=== PATIENT | male | born 1965 | race Hispanic/Latino ===

== ENCOUNTER 2021-02-24 15:57 | Inpatient (IN) | payer MEDICARE ==
[~2021-02-24] VITALS: Ht 170.2 cm; Wt 80.3 kg
[~2021-02-24 15:57] MED LIST: BACTRIM 400-801 EACH PO; BENTYL10 MG PO; CARVEDILOL25 MG PO; COLACE100 M1 PO; FUROSEMIDE80 MG PO; ISONIAZID300 MG PO; LEVEMIR100 UNIT/1 SC; MYFORTIC180 MG PO; PANTOPRAZOLE SO40 MG PO; PREDNISONE10 MG PO; PROGRAF1 MG PO; VITAMIN B-650 M1 PO
[2021-02-24] MEDS ORDERED: PIPERACILLIN/TAZO 4.5 GM 100 ML IV STA (16:19)
[2021-02-24] MEDS ORDERED: SODIUM CHLORIDE 0.9% IV SCH (16:30)
[2021-02-24 16:41] LABS: BASOPHILS # (AUTO) 0.1 (0.0-0.1); HEMATOCRIT 44.9 % (38.2-49.6); HEMOGLOBIN 14.9 g/dL (14.0-18.0); LYMPHOCYTES # (AUTO) 0.9 (1.0-3.2); LYMPHOCYTES % 9.1 % (18.0-39.1); MEAN CORPUSCULAR HEMOGLOBIN 30.7 pg (28-32); MEAN CORPUSCULAR HGB CONC 33.2 g/dL (31-35); MEAN CORPUSCULAR VOLUME 92.6 fL (81-99); MONOCYTES # (AUTO) 1.1 (0.2-0.8); MONOCYTES % 10.9 % (4.4-11.3); NEUTROPHILS % 78.5 % (38.7-80.0); PLATELET COUNT 206 x10e3/uL (140-360); RED BLOOD COUNT 4.85 x10e6/uL (4.3-5.7); RED CELL DISTRIBUTION WIDTH 12.6 % (11.7-14.4)
[2021-02-24 17:13] LABS: ALBUMIN 3.3 g/dL (3.5-5.0); ANION GAP 17.2 mmol/L (8-16); CREATININE, SERUM 1.95 mg/dL (0.72-1.25); POTASSIUM 4.2 mmol/L (3.5-5.1)
[2021-02-24 17:15] LABS: ALBUMIN/GLOBULIN RATIO 0.9 (0.8-2.0)
[2021-02-24] MEDS ORDERED: Vancomycin IV 1 GM in SODIUM CHLORIDE 0.9% 250ML 250 ML IV ONE (17:15)
[2021-02-24] MEDS ORDERED: ONDANSETRON HCL INJ 2MG/ML 2ML 2 MG/ML VIAL IV PRN (20:00)
[2021-02-24] MEDS ORDERED: MORPHINE SULFATE INJ 2 MG/ML SYR IV PRN (20:00)
[2021-02-24] MEDS ORDERED: METOPROLOL SUCC25 MG PO (20:45)
[2021-02-24] MEDS ORDERED: LEVEMIR FL100 UNIT/1 (20:45)
[2021-02-24] MEDS ORDERED: NOVOLOG100 UNITS1 (20:45)
[2021-02-24] MEDS ORDERED: DEXTROSE 50% SYRINGE 50 ML IV PRN (21:15)
[2021-02-24 22:10] VITALS: BP 136/60
[2021-02-24 22:51] LABS: CLARITY,URINE SL CLOUDY (CLEAR); COLOR,URINE ORANGE (YELLOW); KETONES,URINE NEGATIVE (NEGATIVE); LEUKOCYTE ESTERASE ,URINE NEGATIVE (NEGATIVE); NITRITE,URINE NEGATIVE (NEGATIVE); PROTEIN,URINE DIPSTICK NEGATIVE (NEGATIVE); URINE UROBILINOGEN 1 mg/dL (0.2 - 1)
[2021-02-24 22:52] LABS: EPITHELIAL CELLS,URINE FEW /LPF; RBC,URINE 0-5 /HPF (0-5); WBC,URINE (MAN) 0-5 /HPF (0-5)
[2021-02-24 23:00] VITALS: BP 136/60
[2021-02-24 23:06] LABS: BACTERIA,URINE MODERATE /HPF
[2021-02-24] MEDS ORDERED: SODIUM CHLORIDE 0.9% 250ML 250 ML ONE (23:16)
[2021-02-24] MEDS: PIPERACILLIN/TAZOBACTAM 2.25 GM in SODIUM CHLORIDE 0.9% 50ML 50 ML IV SCH (23:31)
[2021-02-24] MEDS: TACROLIMUS 1 MG CAP PO SCH (23:31)
[2021-02-25] VITALS (8 sets, daily range): BP systolic 95–147; BP diastolic 45–75
[2021-02-25] MEDS: PIPERACILLIN/TAZOBACTAM 2.25 GM in SODIUM CHLORIDE 0.9% 50ML 50 ML IV SCH ×3 (05:35→17:28)
[2021-02-25 05:42] LABS: BASOPHILS # (AUTO) 0.1 (0.0-0.1); BASOPHILS % 0.7 % (0.0-1.0); EOSINOPHILS # (AUTO) 0.1 (0.0-0.4); EOSINOPHILS % 0.4 % (0.0-6.0); HEMATOCRIT 42.6 % (38.2-49.6); HEMOGLOBIN 14.3 g/dL (14.0-18.0); LYMPHOCYTES # (AUTO) 0.8 (1.0-3.2); LYMPHOCYTES % 6.1 % (18.0-39.1); MEAN CORPUSCULAR HEMOGLOBIN 31.1 pg (28-32); MEAN CORPUSCULAR HGB CONC 33.6 g/dL (31-35); MEAN CORPUSCULAR VOLUME 92.6 fL (81-99); MONOCYTES # (AUTO) 1.2 (0.2-0.8); MONOCYTES % 10.1 % (4.4-11.3); NEUTROPHILS % 82.2 % (38.7-80.0); PLATELET COUNT 179 x10e3/uL (140-360); RED CELL DISTRIBUTION WIDTH 12.5 % (11.7-14.4)
[2021-02-25] MEDS: TACROLIMUS 1 MG CAP PO SCH ×3 (06:08→21:39)
[2021-02-25] MEDS: ACETAMINOPHEN 325 MG TAB PO PRN ×2 (06:30→22:20)
[2021-02-25 06:31] LABS: CREATINE KINASE MB 1.1 ng/mL (0-5.0)
[2021-02-25 06:38] LABS: ALBUMIN 3.2 g/dL (3.5-5.0); ANION GAP 15.9 mmol/L (8-16); CALCIUM 9.1 mg/dL (8.4-10.2); CREATININE, SERUM 1.64 mg/dL (0.72-1.25); POTASSIUM 3.9 mmol/L (3.5-5.1)
[2021-02-25] MEDS: INSULIN LISPRO 100 UNIT/1 ML 3ML VIAL SQ SCH ×4 (07:30→21:33)
[2021-02-25] MEDS: PREDNISONE 5 MG TAB PO SCH (08:52)
[2021-02-25] MEDS: PANTOPRAZOLE SOD 40 MG TABEC PO SCH (08:52)
[2021-02-25] MEDS ORDERED: CILOSTAZOL50 MG PO (10:26)
[2021-02-25] MEDS ORDERED: LEVOTHYROXINE50 MCG PO (10:26)
[2021-02-25] MEDS ORDERED: COLACE100 MG PO (10:26)
[2021-02-25] MEDS: METOPROLOL SUCCINATE 25 MG TAB XL PO SCH ×2 (10:30→16:29)
[2021-02-25] MEDS: MYCOPHENOLATE SODIUM 720 MG PO SCH ×2 (10:40→16:30)
[2021-02-25] MEDS: AZITHROMYCIN 250 MG TAB PO SCH (21:14)
[2021-02-26] VITALS (9 sets, daily range): BP systolic 102–141; BP diastolic 31–50
[2021-02-26] MEDS: TACROLIMUS 1 MG CAP PO SCH ×2 (05:43→15:01)
[2021-02-26 05:53] LABS: BASOPHILS # (AUTO) 0.1 (0.0-0.1); BASOPHILS % 0.8 % (0.0-1.0); EOSINOPHILS # (AUTO) 0.1 (0.0-0.4); EOSINOPHILS % 0.5 % (0.0-6.0); HEMOGLOBIN 14.9 g/dL (14.0-18.0); LYMPHOCYTES % 8.9 % (18.0-39.1); MEAN CORPUSCULAR HEMOGLOBIN 30.6 pg (28-32); MEAN CORPUSCULAR HGB CONC 33.1 g/dL (31-35); MEAN CORPUSCULAR VOLUME 92.4 fL (81-99); MONOCYTES # (AUTO) 1.2 (0.2-0.8); MONOCYTES % 10.7 % (4.4-11.3); NEUTROPHILS # (AUTO) 8.6 (2.1-6.9); NEUTROPHILS % 78.5 % (38.7-80.0); PLATELET COUNT 182 x10e3/uL (140-360); RED BLOOD COUNT 4.87 x10e6/uL (4.3-5.7); RED CELL DISTRIBUTION WIDTH 12.3 % (11.7-14.4)
[2021-02-26 06:24] LABS: ALBUMIN/GLOBULIN RATIO 0.8 (0.8-2.0); ANION GAP 13.3 mmol/L (8-16); CALCIUM 9.9 mg/dL (8.4-10.2); CREATININE, SERUM 1.49 mg/dL (0.72-1.25); POTASSIUM 4.3 mmol/L (3.5-5.1)
[2021-02-26] MEDS: INSULIN LISPRO 100 UNIT/1 ML 3ML VIAL SQ SCH ×4 (07:30→21:37)
[2021-02-26] MEDS: METOPROLOL SUCCINATE 25 MG TAB XL PO SCH ×2 (09:00→17:00)
[2021-02-26] MEDS: AZITHROMYCIN 250 MG TAB PO SCH (15:00)
[2021-02-26] MEDS: PREDNISONE 5 MG TAB PO SCH (15:01)
[2021-02-26] MEDS: PANTOPRAZOLE SOD 40 MG TABEC PO SCH (15:01)
[2021-02-26] MEDS: MYCOPHENOLATE SODIUM 720 MG PO SCH ×2 (15:04→17:07)
[2021-02-26] MEDS: CEFTRIAXONE 1 GM in SODIUM CHLORIDE 0.9% 50ML 50 ML IV SCH (15:04)
[2021-02-26] MEDS ORDERED: CEFTRIAXONE 1 GM VIAL ONE (15:13)
[2021-02-26] MEDS ORDERED: REMDESIVIR 200MG 200 MG in SODIUM CHLORIDE 0.9% 100 ML 100 ML IV ONE (16:00)
[2021-02-27] VITALS (8 sets, daily range): BP systolic 110–145; BP diastolic 44–58
[2021-02-27 05:38] LABS: BASOPHILS # (AUTO) 0.1 (0.0-0.1); BASOPHILS % 0.7 % (0.0-1.0); EOSINOPHILS % 0.3 % (0.0-6.0); HEMOGLOBIN 15.5 g/dL (14.0-18.0); LYMPHOCYTES # (AUTO) 1.2 (1.0-3.2); LYMPHOCYTES % 11.6 % (18.0-39.1); MEAN CORPUSCULAR HEMOGLOBIN 30.8 pg (28-32); MEAN CORPUSCULAR VOLUME 93.4 fL (81-99); MONOCYTES # (AUTO) 1.2 (0.2-0.8); MONOCYTES % 10.9 % (4.4-11.3); NEUTROPHILS # (AUTO) 8.1 (2.1-6.9); PLATELET COUNT 200 x10e3/uL (140-360); RED BLOOD COUNT 5.03 x10e6/uL (4.3-5.7); RED CELL DISTRIBUTION WIDTH 12.3 % (11.7-14.4)
[2021-02-27] MEDS: LEVOTHYROXINE SODIUM 25 MCG TABLET PO SCH (06:15)
[2021-02-27] MEDS ORDERED: TRIMETHOPRIM/SULFAMETHOXAZOLE 160-800 MG TAB PO SCH (07:30)
[2021-02-27] MEDS ORDERED: TACROLIMUS 1 MG CAP PO SCH ×3 (07:30→16:30)
[2021-02-27 08:16] LABS: ALBUMIN 3.1 g/dL (3.5-5.0); ALBUMIN/GLOBULIN RATIO 0.8 (0.8-2.0); ANION GAP 22.5 mmol/L (8-16); CALCIUM 10.4 mg/dL (8.4-10.2); CREATININE, SERUM 1.26 mg/dL (0.72-1.25); POTASSIUM 4.5 mmol/L (3.5-5.1)
[2021-02-27] MEDS: PANTOPRAZOLE SOD 40 MG TABEC PO SCH (08:36)
[2021-02-27] MEDS: AZITHROMYCIN 250 MG TAB PO SCH (08:37)
[2021-02-27] MEDS: CEFTRIAXONE 1 GM in SODIUM CHLORIDE 0.9% 50ML 50 ML IV SCH (08:37)
[2021-02-27] MEDS: PREDNISONE 20 MG TAB PO SCH (08:37)
[2021-02-27] MEDS: METOPROLOL SUCCINATE 25 MG TAB XL PO SCH ×2 (08:38→17:00)
[2021-02-27] MEDS: MYCOPHENOLATE SODIUM 720 MG PO SCH ×2 (08:39→17:45)
[2021-02-27] MEDS: INSULIN LISPRO 100 UNIT/1 ML 3ML VIAL SQ SCH ×4 (08:42→21:00)
[2021-02-27] MEDS ORDERED: TRIMETHOPRIM/SULFAMETHOXAZOLE 160-800 MG TAB PO PRN (08:45)
[2021-02-27] MEDS ORDERED: ISONIAZID 300 MG TAB PO SCH (09:00)
[2021-02-27] MEDS ORDERED: PYRIDOXINE HCL 50 MG PO SCH (09:00)
[2021-02-27] MEDS: PYRIDOXINE HCL 50 MG TAB PO SCH (11:26)
[2021-02-27] MEDS: ISONIAZID 300 MG TAB PO SCH (11:26)
[2021-02-27] MEDS: TRIMETHOPRIM/SULFAMETHOXAZOLE 160-800 MG TAB PO SCH (14:30)
[2021-02-27] MEDS: REMDESIVIR 100MG 100 MG in SODIUM CHLORIDE 0.9% 100 ML 100 ML IV SCH (14:30)
[2021-02-27] MEDS ORDERED: INSULIN LISPRO 100 UNIT/1 ML 3ML VIAL SQ ONE ×2 (20:30→22:45)
[2021-02-27] MEDS: TACROLIMUS 1 MG CAP PO SCH (20:57)
[2021-02-28] VITALS (9 sets, daily range): BP systolic 90–141; BP diastolic 40–67
[2021-02-28 05:46] LABS: BASOPHILS % 0.3 % (0.0-1.0); HEMATOCRIT 43.8 % (38.2-49.6); HEMOGLOBIN 14.7 g/dL (14.0-18.0); LYMPHOCYTES # (AUTO) 0.9 (1.0-3.2); LYMPHOCYTES % 8.4 % (18.0-39.1); MEAN CORPUSCULAR HEMOGLOBIN 30.7 pg (28-32); MEAN CORPUSCULAR HGB CONC 33.6 g/dL (31-35); MEAN CORPUSCULAR VOLUME 91.4 fL (81-99); MONOCYTES # (AUTO) 0.9 (0.2-0.8); MONOCYTES % 8.1 % (4.4-11.3); NEUTROPHILS # (AUTO) 8.8 (2.1-6.9); NEUTROPHILS % 82.4 % (38.7-80.0); PLATELET COUNT 200 x10e3/uL (140-360); RED BLOOD COUNT 4.79 x10e6/uL (4.3-5.7)
[2021-02-28] MEDS: LEVOTHYROXINE SODIUM 25 MCG TABLET PO SCH (06:15)
[2021-02-28 06:34] LABS: ANION GAP 16.4 mmol/L (8-16); CALCIUM 10.8 mg/dL (8.4-10.2); CREATININE, SERUM 1.97 mg/dL (0.72-1.25); POTASSIUM 4.4 mmol/L (3.5-5.1)
[2021-02-28 07:13] LABS: CHOL/HDL RATIO 7.2 (3.9-4.7)
[2021-02-28] MEDS ORDERED: CEFTRIAXONE 1 GM VIAL ONE (08:10)
[2021-02-28] MEDS: CEFTRIAXONE 1 GM in SODIUM CHLORIDE 0.9% 50ML 50 ML IV SCH (08:30)
[2021-02-28] MEDS: METOPROLOL SUCCINATE 25 MG TAB XL PO SCH ×2 (08:32→17:00)
[2021-02-28] MEDS: ASPIRIN 81 MG ENTERIC COATED PO SCH (08:32)
[2021-02-28] MEDS: MYCOPHENOLATE SODIUM 720 MG PO SCH ×2 (08:32→17:21)
[2021-02-28] MEDS: ISONIAZID 300 MG TAB PO SCH (08:32)
[2021-02-28] MEDS: PREDNISONE 20 MG TAB PO SCH (08:32)
[2021-02-28] MEDS: PYRIDOXINE HCL 50 MG TAB PO SCH (08:33)
[2021-02-28] MEDS: PANTOPRAZOLE SOD 40 MG TABEC PO SCH (08:33)
[2021-02-28] MEDS: INSULIN LISPRO 100 UNIT/1 ML 3ML VIAL SQ SCH ×4 (08:57→21:17)
[2021-02-28] MEDS: TACROLIMUS 1 MG CAP PO SCH ×2 (09:21→21:08)
[2021-02-28] MEDS: TRIMETHOPRIM/SULFAMETHOXAZOLE 160-800 MG TAB PO SCH (12:06)
[2021-02-28] MEDS: REMDESIVIR 100MG 100 MG in SODIUM CHLORIDE 0.9% 100 ML 100 ML IV SCH (14:07)
[2021-03-01] VITALS: BP 128/59
[2021-03-01 04:00] VITALS: BP 127/51
[2021-03-01] MEDS: LEVOTHYROXINE SODIUM 25 MCG TABLET PO SCH (06:12)
[2021-03-01 07:39] LABS: BASOPHILS % 0.1 % (0.0-1.0); HEMATOCRIT 44.1 % (38.2-49.6); HEMOGLOBIN 14.8 g/dL (14.0-18.0); LYMPHOCYTES # (AUTO) 0.8 (1.0-3.2); LYMPHOCYTES % 6.2 % (18.0-39.1); MEAN CORPUSCULAR HGB CONC 33.6 g/dL (31-35); MEAN CORPUSCULAR VOLUME 92.3 fL (81-99); MONOCYTES # (AUTO) 0.5 (0.2-0.8); MONOCYTES % 3.9 % (4.4-11.3); NEUTROPHILS % 88.9 % (38.7-80.0); PLATELET COUNT 203 x10e3/uL (140-360); RED BLOOD COUNT 4.78 x10e6/uL (4.3-5.7); RED CELL DISTRIBUTION WIDTH 12.1 % (11.7-14.4)
[2021-03-01 08:05] LABS: ANION GAP 15.8 mmol/L (8-16); CALCIUM 10.8 mg/dL (8.4-10.2); CREATININE, SERUM 1.92 mg/dL (0.72-1.25); POTASSIUM 4.8 mmol/L (3.5-5.1)
[2021-03-01] MEDS: METOPROLOL SUCCINATE 25 MG TAB XL PO SCH ×2 (08:05→16:47)
[2021-03-01] MEDS: PANTOPRAZOLE SOD 40 MG TABEC PO SCH (09:16)
[2021-03-01] MEDS: MYCOPHENOLATE SODIUM 720 MG PO SCH ×2 (09:18→16:59)
[2021-03-01] MEDS: CEFTRIAXONE 1 GM in SODIUM CHLORIDE 0.9% 50ML 50 ML IV SCH (09:18)
[2021-03-01] MEDS: TACROLIMUS 1 MG CAP PO SCH ×2 (09:19→21:09)
[2021-03-01] MEDS: PREDNISONE 20 MG TAB PO SCH (09:19)
[2021-03-01] MEDS: PYRIDOXINE HCL 50 MG TAB PO SCH (09:19)
[2021-03-01] MEDS: ASPIRIN 81 MG ENTERIC COATED PO SCH (09:19)
[2021-03-01] MEDS: INSULIN LISPRO 100 UNIT/1 ML 3ML VIAL SQ SCH ×4 (09:31→21:13)
[2021-03-01 11:00] VITALS: BP 129/59
[2021-03-01] MEDS: TRIMETHOPRIM/SULFAMETHOXAZOLE 160-800 MG TAB PO SCH (12:30)
[2021-03-01] MEDS: DOCUSATE SODIUM LIQD 100 MG/10 ML UDC NG SCH ×2 (12:30→16:59)
[2021-03-01] MEDS: INSULIN GLARGINE 100 UNITS/ML VIAL SQ SCH ×2 (12:36→17:00)
[2021-03-01 12:37] VITALS: BP 138/48
[2021-03-01] MEDS: REMDESIVIR 100MG 100 MG in SODIUM CHLORIDE 0.9% 100 ML 100 ML IV SCH (13:19)
[2021-03-01 17:02] VITALS: BP 116/57
[2021-03-01 20:00] VITALS: BP 128/44
[2021-03-02] VITALS (7 sets, daily range): BP systolic 126–147; BP diastolic 48–67
[2021-03-02] MEDS: LEVOTHYROXINE SODIUM 25 MCG TABLET PO SCH (05:46)
[2021-03-02 06:47] LABS: BASOPHILS % 0.1 % (0.0-1.0); HEMATOCRIT 42.8 % (38.2-49.6); HEMOGLOBIN 14.6 g/dL (14.0-18.0); LYMPHOCYTES % 7.5 % (18.0-39.1); MEAN CORPUSCULAR HEMOGLOBIN 31.1 pg (28-32); MEAN CORPUSCULAR HGB CONC 34.1 g/dL (31-35); MEAN CORPUSCULAR VOLUME 91.3 fL (81-99); MONOCYTES # (AUTO) 0.6 (0.2-0.8); MONOCYTES % 4.8 % (4.4-11.3); NEUTROPHILS # (AUTO) 11.3 (2.1-6.9); NEUTROPHILS % 86.9 % (38.7-80.0); PLATELET COUNT 199 x10e3/uL (140-360); RED BLOOD COUNT 4.69 x10e6/uL (4.3-5.7); RED CELL DISTRIBUTION WIDTH 12.3 % (11.7-14.4)
[2021-03-02 07:17] LABS: ALBUMIN 2.8 g/dL (3.5-5.0); ALBUMIN/GLOBULIN RATIO 0.9 (0.8-2.0); ANION GAP 14.5 mmol/L (8-16); CALCIUM 10.8 mg/dL (8.4-10.2); CREATININE, SERUM 1.47 mg/dL (0.72-1.25); POTASSIUM 4.5 mmol/L (3.5-5.1)
[2021-03-02] MEDS: MYCOPHENOLATE SODIUM 720 MG PO SCH ×2 (09:00→17:17)
[2021-03-02] MEDS: INSULIN GLARGINE 100 UNITS/ML VIAL SQ SCH (10:25)
[2021-03-02] MEDS: INSULIN LISPRO 100 UNIT/1 ML 3ML VIAL SQ SCH ×4 (10:26→21:35)
[2021-03-02] MEDS: PANTOPRAZOLE SOD 40 MG TABEC PO SCH (10:26)
[2021-03-02] MEDS: DOCUSATE SODIUM LIQD 100 MG/10 ML UDC NG SCH ×2 (10:26→17:07)
[2021-03-02] MEDS: ASPIRIN 81 MG ENTERIC COATED PO SCH (10:27)
[2021-03-02] MEDS: PREDNISONE 20 MG TAB PO SCH (10:27)
[2021-03-02] MEDS: TACROLIMUS 1 MG CAP PO SCH ×2 (10:28→21:34)
[2021-03-02] MEDS: METOPROLOL SUCCINATE 25 MG TAB XL PO SCH ×2 (10:29→17:08)
[2021-03-02] MEDS: PYRIDOXINE HCL 50 MG TAB PO SCH (10:29)
[2021-03-02] MEDS: REMDESIVIR 100MG 100 MG in SODIUM CHLORIDE 0.9% 100 ML 100 ML IV SCH (14:14)
[2021-03-02] MEDS: TRIMETHOPRIM/SULFAMETHOXAZOLE 160-800 MG TAB PO SCH (14:14)
[2021-03-02] MEDS ORDERED: INSULIN LISPRO 100 UNIT/1 ML 3ML VIAL SQ ONE (21:00)
[2021-03-03] VITALS: BP 129/57
[2021-03-03 04:00] VITALS: BP 138/60
[2021-03-03] MEDS: LEVOTHYROXINE SODIUM 25 MCG TABLET PO SCH (05:00)
[2021-03-03 08:02] VITALS: BP 138/62
[2021-03-03] MEDS: PANTOPRAZOLE SOD 40 MG TABEC PO SCH (08:43)
[2021-03-03] MEDS: DOCUSATE SODIUM LIQD 100 MG/10 ML UDC NG SCH (08:44)
[2021-03-03] MEDS: ASPIRIN 81 MG ENTERIC COATED PO SCH (08:44)
[2021-03-03] MEDS: TACROLIMUS 1 MG CAP PO SCH (08:44)
[2021-03-03] MEDS: MYCOPHENOLATE SODIUM 720 MG PO SCH (08:44)
[2021-03-03] MEDS: METOPROLOL SUCCINATE 25 MG TAB XL PO SCH (08:45)
[2021-03-03] MEDS: PYRIDOXINE HCL 50 MG TAB PO SCH (08:46)
[2021-03-03] MEDS: INSULIN LISPRO 100 UNIT/1 ML 3ML VIAL SQ SCH ×2 (08:49→12:13)
[2021-03-03] MEDS ORDERED: INSULIN GLARGINE 100 UNITS/ML VIAL SQ SCH (09:00)
[2021-03-03] MEDS ORDERED: PREDNISONE 20 MG TAB PO SCH (09:00)
[2021-03-03 09:18] LABS: BASOPHILS % 0.1 % (0.0-1.0); HEMATOCRIT 47.8 % (38.2-49.6); HEMOGLOBIN 15.9 g/dL (14.0-18.0); LYMPHOCYTES # (AUTO) 1.1 (1.0-3.2); LYMPHOCYTES % 8.2 % (18.0-39.1); MEAN CORPUSCULAR HEMOGLOBIN 30.6 pg (28-32); MEAN CORPUSCULAR HGB CONC 33.3 g/dL (31-35); MEAN CORPUSCULAR VOLUME 92.1 fL (81-99); MONOCYTES # (AUTO) 0.8 (0.2-0.8); MONOCYTES % 5.5 % (4.4-11.3); NEUTROPHILS # (AUTO) 11.8 (2.1-6.9); NEUTROPHILS % 85.5 % (38.7-80.0); PLATELET COUNT 206 x10e3/uL (140-360); RED BLOOD COUNT 5.19 x10e6/uL (4.3-5.7); RED CELL DISTRIBUTION WIDTH 12.3 % (11.7-14.4)
[2021-03-03 09:43] LABS: ANION GAP 13.6 mmol/L (8-16); CALCIUM 10.5 mg/dL (8.4-10.2); CREATININE, SERUM 1.46 mg/dL (0.72-1.25); POTASSIUM 4.6 mmol/L (3.5-5.1)
[2021-03-03 11:41] VITALS: BP 124/53
[2021-03-03] MEDS: TRIMETHOPRIM/SULFAMETHOXAZOLE 160-800 MG TAB PO SCH (12:13)
[2021-03-03 12:58] VITALS: BP 124/53
[2021-03-03] MEDS ORDERED: TOPROL XL25 MG PO (15:10)
[2021-03-03] MEDS ORDERED: ASPIRIN EC81 MG PO (15:10)
[2021-03-03] MEDS ORDERED: PREDNISONE5 MG PO (15:10)
[2021-03-03] MEDS ORDERED: BACTRIM DS TAB1 EACH PO (15:11)
[2021-03-03 16:04] VITALS: BP 101/61
[2021-03-04] MEDS ORDERED: PREDNISONE 20 MG TAB PO SCH (09:00)
[2021-03-09] MEDS ORDERED: PREDNISONE 5 MG TAB PO SCH (09:00)
== END 2021-03-03 17:52 | disposition home or self-care (01) | DRG 871 ==
LOC: ER 16:19 → ERHOLD 20:03 → MED/SURG3 22:39
PROVIDERS: ADMIT Internal Medicine; ATTEND Internal Medicine
PROC: 02HV33Z Insertion of Infusion Device into Superior Vena Cava, Percutaneous Approach (ICD-10-PCS; principal; 2021-02-24)
PROC: B548ZZA Ultrasonography of Superior Vena Cava, Guidance (ICD-10-PCS; 2021-02-24)
PROC: XW043E5 Introduction of Remdesivir Anti-infective into Central Vein, Percutaneous Approach, New Technology Group 5 (ICD-10-PCS; 2021-02-26)
DX: A41.9 Sepsis, unspecified organism (principal); J18.9 Pneumonia, unspecified organism; J96.01 Acute respiratory failure with hypoxia; Z94.0 Kidney transplant status; D84.81 Immunodeficiency due to conditions classified elsewhere; I13.0 Hypertensive heart and chronic kidney disease with heart failure and stage 1 through stage 4 chronic kidney disease, or unspecified chronic kidney disease; I50.32 Chronic diastolic (congestive) heart failure; N17.9 Acute kidney failure, unspecified; R65.20 Severe sepsis without septic shock; K21.9 Gastro-esophageal reflux disease without esophagitis; Z20.822 Contact with and (suspected) exposure to COVID-19; I25.10 Atherosclerotic heart disease of native coronary artery without angina pectoris; E11.21 Type 2 diabetes mellitus with diabetic nephropathy; I73.9 Peripheral vascular disease, unspecified; K64.9 Unspecified hemorrhoids; Z95.5 Presence of coronary angioplasty implant and graft; E11.22 Type 2 diabetes mellitus with diabetic chronic kidney disease; N18.30 Chronic kidney disease, stage 3 unspecified; Z79.52 Long term (current) use of systemic steroids
CPT/HCPCS: 36415; 71045; 71250; 74176; 76705; 80048; 80053; 80061; 81001; 82248; 82550; 82553; 82948; 83036; 83605; 83880; 84484; 85025; 86631; 86738; 87040; 87086; 87385; 87449; 93005; 93306; 93925; 96372; 99284; J0696; J1815; J2543; J3370; J7030; J7050; J7507; J7512; U0002